=== PATIENT | female | born 2000 | race Asian ===

== ENCOUNTER 2024-12-15 17:46 | Emergency (ER) | payer OTHER ==
[2024-12-15 17:54] VITALS: BP 128/88; PULSE 102; RESP 20; TEMP 98.2; BMI 24.5
== END 2024-12-15 19:10 | disposition home or self-care (01) ==
LOC: JERFT 17:46 → JER 17:46 → JERFT 19:10
DX: J40 Bronchitis, not specified as acute or chronic (principal); R50.9 Fever, unspecified; R05.9 Cough, unspecified; J02.9 Acute pharyngitis, unspecified; M79.10 Myalgia, unspecified site
CPT/HCPCS: 71046-TC-FY; 99283-25